=== PATIENT | female | born 1930 | race Caucasian/White ===

== ENCOUNTER 2017-02-03 10:08 | Inpatient (IN) ==
[2017-02-03] MEDS ORDERED: MORPHINE IV ONE (10:28)
[2017-02-03] MEDS ORDERED: MORPHINE ONE (10:49)
[2017-02-03 10:50] LABS: MANUAL DIFF NEEDED? NO
[2017-02-03 10:56] LABS: BASO% 0.2 % (0.0-0.8); EOS# 0.14 X1000 (0.0-0.7); EOS% 2.3 % (0.0-10.0); HEMATOCRIT 34.3 % (37.0-47.0); HEMOGLOBIN 10.8 g/dL (12.0-16.0); LYMPH# 1.79 X1000 (1.2-3.4); LYMPH% 29.9 % (20.5-51.1); MCH 29.3 PG (27-31); MCHC 31.5 g/dL (33-37); MCV 93.2 FL (81-99); MONO# 0.39 X1000 (0.11-0.59); MONO% 6.5 % (1.7-9.3); MPV 10.2 FL (7.4-10.4); NEUT% 61.1 % (42.2-75.2); PLT 293 X1000 (130-400); RBC 3.68 XMIL (4.2-5.4)
[2017-02-03 11:13] LABS: ALBUMIN 3.4 g/dL (3.5-5.0); CALCIUM 9.5 mg/dL (8.8-10.2); POTASSIUM 4.3 mmol/L (3.5-5.1); TOTAL BILIRUBIN 0.2 mg/dL (0.20-1.00); TOTAL PROTEIN 7.7 g/dL (6.3-8.3)
--- NOTE | 2017-02-03 11:48 | Diag Imaging Result Doc PS360 ---
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 There is patchy lucency in the periventricular white matter of both hemispheres. There is no evidence of bleed, mass effect, or abnormal extra-axial fluid collection. Compared to 06/04/2016, the appearance of the brain has not changed significantly. Cervical spine: There is no evidence of fracture or subluxation. There is degenerative disc changes at the C5-6 level which has not changed significantly since 06/04/2016. There is also facet arthropathy particularly at the C4-5 level bilaterally. IMPRESSION: Chronic changes. No evidence of acute disease. Electronically signed by Rod Mcmillan 02/03/2017 11:46 AM
--- NOTE | 2017-02-03 11:54 | Diag Imaging Result Doc PS360 ---
EXAM: ELBOW COMPLETE RIGHT HISTORY: fall, bruise right elbow TECHNIQUE: Right elbow three views COMMENT: There is no evidence of fracture or dislocation. No other definite bony abnormalities are present. IMPRESSION: No acute bony disease. Electronically signed by Rod Mcmillan 02/03/2017 11:52 AM
--- NOTE | 2017-02-03 11:55 | Diag Imaging Result Doc PS360 ---
CHEST-1 VIEW - 02/03/2017 INDICATION: HIP FX TECHNIQUE: COMPARISON: 03/03/2014 FINDINGS: Lung volumes are low. The lungs are clear. Heart size is normal. No pneumothorax or pleural effusion. IMPRESSION: Negative exam. Electronically signed by Mitul Palomares 02/03/2017 11:52 AM
--- NOTE | 2017-02-03 11:57 | Diag Imaging Result Doc PS360 ---
EXAM: XRAY PELVIS W/HIP 2-3VW RT HISTORY: fall, right hip pain, unable to move leg TECHNIQUE: AP pelvis and right hip four views COMMENT: There is an intertrochanteric fracture of the right femur. There is some generalized osteopenia. 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 There is stool in the rectum. Postsurgical changes are present at L4-5 and there is degenerative disc disease at L3-4. IMPRESSION: Fracture right proximal femur. Electronically signed by Rod Mcmillan 02/03/2017 11:55 AM
[2017-02-03] MEDS ORDERED: ZOFRAN IV ONE (12:15)
[2017-02-03] MEDS ORDERED: NS 1,000 ML IV ONE (12:26)
[2017-02-03 13:00] LABS: URINE CULTURE NEEDED? NO; URINE MICRO REVIEW NEEDED? NO; URINE SOURCE CLEAN CATCH
[2017-02-03 13:03] LABS: BILIRUBIN URINE NEGATIVE (NEGATIVE); BLOOD URINE NEGATIVE (NEGATIVE); COLOR STRAW; GLUCOSE URINE 150 mg/dL (NEGATIVE); LEUKOCYTES URINE NEGATIVE (NEGATIVE); NITRITE URINE NEGATIVE (NEGATIVE); PH URINE 5.5; PROTEIN URINE 50 mg/dL (NEGATIVE); SP GRAVITY URINE 1.005; TURBIDITY URINE CLEAR (CLEAR); UR EPITHELIAL CELLS <10 /HPF (<10); URINE BACTERIA NEGATIVE /HPF; URINE RBC <10 /HPF (<10); URINE WBC <10 /HPF (<10); UROBILINOGEN URINE NORMAL (NORMAL)
[2017-02-03] MEDS ORDERED: MORPHINE IV PRN (15:19)
[2017-02-03 15:45] LABS: IRON SATURATION 19 %; TIBC 300 ug/dL; TOTAL IRON 56 ug/dL (49-151); UNBOUND IRON 244 ug/dL (112-346)
[2017-02-03] MEDS ORDERED: NORCO-7.5 PO PRN (16:05)
[2017-02-03] MEDS ORDERED: ZOFRAN IV PRN (16:05)
[2017-02-03] MEDS ORDERED: TYLENOL PO PRN (16:05)
[2017-02-03 16:06] LABS: FERRITIN 352 ng/mL (13-150)
--- NOTE | 2017-02-03 16:33 | Diag Imaging Result Doc PS360 ---
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 There is generalized osteopenia. There is no evidence of fracture or dislocation. No previous studies are available for comparison. IMPRESSION: Osteopenia. No acute bony abnormality. Electronically signed by Rod Mcmillan 02/03/2017 4:31 PM
[2017-02-03] MEDS: HUMULIN R SUBQ SCH ×2 (17:24→21:50)
[2017-02-03] MEDS: NS 1,000 ML IV SCH ×2 (17:25→21:50)
[2017-02-03] MEDS: XANAX PO SCH (21:49)
[2017-02-03] MEDS: INDERAL PO SCH (21:50)
[2017-02-04] MEDS: NS 1,000 ML IV SCH ×2 (05:17→14:42)
[2017-02-04 05:29] LABS: MANUAL DIFF NEEDED? NO
[2017-02-04 05:35] LABS: BASO% 0.2 % (0.0-0.8); EOS# 0.11 X1000 (0.0-0.7); EOS% 1.8 % (0.0-10.0); HEMATOCRIT 30.8 % (37.0-47.0); HEMOGLOBIN 9.6 g/dL (12.0-16.0); LYMPH# 1.84 X1000 (1.2-3.4); LYMPH% 29.9 % (20.5-51.1); MCH 29.1 PG (27-31); MCHC 31.2 g/dL (33-37); MCV 93.3 FL (81-99); MONO# 0.58 X1000 (0.11-0.59); MONO% 9.4 % (1.7-9.3); MPV 9.7 FL (7.4-10.4); NEUT% 58.7 % (42.2-75.2); PLT 230 X1000 (130-400)
[2017-02-04 05:44] LABS: INR 0.92; PROTIME 9.6 Seconds (9.2-11.7); PTT 26.1 Seconds (22.0-36.0)
[2017-02-04 05:52] LABS: CALCIUM 8.5 mg/dL (8.8-10.2); MAGNESIUM 1.6 mg/dL (1.5-2.7); POTASSIUM 3.9 mmol/L (3.5-5.1); TOTAL BILIRUBIN 0.2 mg/dL (0.20-1.00); TOTAL PROTEIN 6.1 g/dL (6.3-8.3)
[2017-02-04] MEDS: HUMULIN R SUBQ SCH ×4 (06:12→23:39)
[2017-02-04] MEDS: PRILOSEC PO SCH (06:12)
--- NOTE | 2017-02-04 07:08 | EKG Report ---
Test Performed on : 02/04/2017 06:06:13 AM Test Reason : rythm analysis Blood Pressure : / mmHG Vent. Rate : 081 BPM Atrial Rate : 081 BPM P-R Int : 218 ms QRS Dur : 126 ms QT Int : 406 ms P-R-T Axes : 042 -67 014 degrees QTc Int : 471 ms Sinus rhythm. with 1st degree AV block. Right bundle branch block Left anterior fascicular block Bifascicular block Possible Lateral infarct (cited on or before 03-FEB-2017) Abnormal ECG When compared with ECG of 03-FEB-2017 15:53, (Unconfirmed) Questionable change in initial forces of Lateral leads Confirmed by Robert MACDONALD, Mateo Alva ([id number]) on 02/05/2017 6:40:22 AM
[2017-02-04] MEDS ORDERED: INSULIN PEN NEEDLES ONE (07:30)
[2017-02-04] MEDS ORDERED: QUELICIN (DOSE) ONE (10:46)
[2017-02-04] MEDS ORDERED: XYLOCAINE-MPF 2% ONE (10:48)
[2017-02-04] MEDS ORDERED: DIPRIVAN 1% ONE (11:51)
[2017-02-04] MEDS ORDERED: KEFZOL 1 GM/D5W 1 GM/50 ML IVPB ONE (11:56)
[2017-02-04] MEDS ORDERED: FENTANYL ONE (12:23)
[2017-02-04] MEDS ORDERED: OFIRMEV 1000 MG/ISOTONIC SOLN 1,000 MG/100 ML BOTTLE ONE (12:54)
[2017-02-04] MEDS ORDERED: ZOFRAN ONE (12:54)
[2017-02-04] MEDS ORDERED: ZOFRAN IV PRN (14:32)
[2017-02-04] MEDS ORDERED: MILK OF MAGNESIA PO PRN (14:32)
[2017-02-04] MEDS ORDERED: HALDOL IV PRN (14:32)
[2017-02-04 15:23] LABS: URINE MICRO REVIEW NEEDED? NO; URINE SOURCE CATH
[2017-02-04 15:32] LABS: BILIRUBIN URINE NEGATIVE (NEGATIVE); BLOOD URINE MODERATE (NEGATIVE); COLOR YELLOW; GLUCOSE URINE 200 mg/dL (NEGATIVE); LEUKOCYTES URINE LARGE (NEGATIVE); NITRITE URINE NEGATIVE (NEGATIVE); PH URINE 6.5; PROTEIN URINE 70 mg/dL (NEGATIVE); TURBIDITY URINE HAZY (CLEAR); UROBILINOGEN URINE NORMAL (NORMAL)
[2017-02-04 15:34] LABS: UR EPITHELIAL CELLS <10 /HPF (<10); URINE BACTERIA NEGATIVE /HPF; URINE CULTURE NEEDED? YES; URINE RBC <10 /HPF (<10); URINE WBC TNTC /HPF (<10)
[2017-02-04] MEDS: INDERAL PO SCH ×2 (16:54→20:22)
[2017-02-04] MEDS: LEVEMIR SUBQ SCH (16:55)
[2017-02-04] MEDS: VITAMIN D PO SCH (16:56)
[2017-02-04] MEDS: NORVASC PO SCH (16:56)
[2017-02-04] MEDS: TYLENOL PO SCH ×2 (17:47→23:42)
[2017-02-04] MEDS: OXY IR PO PRN (19:09)
[2017-02-04] MEDS: XANAX PO SCH (20:22)
[2017-02-04] MEDS: COLACE PO SCH (20:22)
[2017-02-04] MEDS: KEFZOL 1 GM/D5W 1 GM/50 ML IVPB IV SCH (20:23)
[2017-02-05] MEDS: OXY IR PO PRN ×2 (02:49→09:33)
[2017-02-05] MEDS: NS 1,000 ML IV SCH ×2 (02:50→17:27)
[2017-02-05] MEDS: KEFZOL 1 GM/D5W 1 GM/50 ML IVPB IV SCH ×2 (04:30→12:21)
[2017-02-05 06:09] LABS: HEMATOCRIT 26.9 % (37.0-47.0); HEMOGLOBIN 8.3 g/dL (12.0-16.0)
[2017-02-05 06:38] LABS: CALCIUM 8.1 mg/dL (8.8-10.2); POTASSIUM 3.9 mmol/L (3.5-5.1)
[2017-02-05] MEDS: TYLENOL PO SCH ×3 (06:41→22:36)
[2017-02-05] MEDS: PRILOSEC PO SCH (06:41)
[2017-02-05] MEDS ORDERED: INSULIN PEN NEEDLES ONE (08:37)
[2017-02-05] MEDS: NORVASC PO SCH (09:25)
[2017-02-05] MEDS: LOVENOX SUBQ SCH (09:25)
[2017-02-05] MEDS: VITAMIN D PO SCH (09:25)
[2017-02-05] MEDS: MIRALAX PO SCH (09:25)
[2017-02-05] MEDS: FERROUS SULFATE PO SCH (09:25)
[2017-02-05] MEDS: INDERAL PO SCH ×2 (09:26→22:36)
[2017-02-05] MEDS: LEVEMIR SUBQ SCH (09:26)
[2017-02-05] MEDS: HUMULIN R SUBQ SCH ×4 (12:21→22:39)
[2017-02-05] MEDS: COLACE PO SCH (22:36)
[2017-02-05] MEDS: XANAX PO SCH (22:37)
[2017-02-06] MEDS: OXY IR PO PRN ×2 (02:32→14:33)
[2017-02-06 05:36] LABS: HEMATOCRIT 24.3 % (37.0-47.0); HEMOGLOBIN 7.6 g/dL (12.0-16.0)
[2017-02-06] MEDS: NS 1,000 ML IV SCH ×3 (06:49→17:55)
[2017-02-06] MEDS: PRILOSEC PO SCH (06:57)
[2017-02-06] MEDS: TYLENOL PO SCH ×3 (06:57→21:17)
[2017-02-06] MEDS: HUMULIN R SUBQ SCH ×4 (06:57→21:17)
[2017-02-06] MEDS: INDERAL PO SCH ×2 (11:50→21:17)
[2017-02-06] MEDS: FERROUS SULFATE PO SCH (11:50)
[2017-02-06] MEDS: LOVENOX SUBQ SCH (11:51)
[2017-02-06] MEDS: LEVEMIR SUBQ SCH (11:51)
[2017-02-06] MEDS: NORVASC PO SCH (11:51)
[2017-02-06] MEDS: MIRALAX PO SCH (11:52)
[2017-02-06] MEDS: VITAMIN D PO SCH (11:55)
[2017-02-06] MEDS: MORPHINE IV PRN (18:51)
[2017-02-06] MEDS: COLACE PO SCH (21:17)
[2017-02-06] MEDS: XANAX PO SCH (21:17)
[2017-02-07] MEDS: TYLENOL PO SCH ×5 (05:33→20:54)
[2017-02-07] MEDS: PRILOSEC PO SCH ×2 (05:57→06:26)
[2017-02-07] MEDS: HUMULIN R SUBQ SCH ×4 (06:00→20:53)
[2017-02-07 06:08] LABS: HEMATOCRIT 23.2 % (37.0-47.0); HEMOGLOBIN 7.2 g/dL (12.0-16.0)
[2017-02-07 06:27] LABS: CALCIUM 8.2 mg/dL (8.8-10.2); POTASSIUM 4.3 mmol/L (3.5-5.1)
[2017-02-07] MEDS ORDERED: CALMOSEPTINE OINTMENT TOP PRN (10:27)
[2017-02-07] MEDS: PERIDEX MT SCH ×2 (10:44→20:53)
[2017-02-07] MEDS: VITAMIN D PO SCH (10:44)
[2017-02-07] MEDS: INDERAL PO SCH ×2 (10:44→20:53)
[2017-02-07] MEDS: LOVENOX SUBQ SCH (10:44)
[2017-02-07] MEDS: FERROUS SULFATE PO SCH (10:45)
[2017-02-07] MEDS: NORVASC PO SCH (10:45)
[2017-02-07] MEDS: LEVEMIR SUBQ SCH (10:45)
[2017-02-07] MEDS: MIRALAX PO SCH (10:45)
[2017-02-07] MEDS: NS 1,000 ML IV SCH (16:28)
[2017-02-07] MEDS: MORPHINE IV PRN (18:06)
[2017-02-07] MEDS: COLACE PO SCH (20:53)
[2017-02-07] MEDS: XANAX PO SCH (20:54)
[2017-02-08] MEDS: TYLENOL PO SCH ×2 (03:18→06:21)
[2017-02-08 05:45] LABS: MANUAL DIFF NEEDED? NO
[2017-02-08] MEDS: PRILOSEC PO SCH ×2 (05:50→06:21)
[2017-02-08 05:54] LABS: BASO% 0.2 % (0.0-0.8); EOS# 0.13 X1000 (0.0-0.7); HEMATOCRIT 27.4 % (37.0-47.0); HEMOGLOBIN 8.7 g/dL (12.0-16.0); IMM GRAN# 0.02 X1000 (0.0-0.04); IMM GRAN% 0.3 % (0.0-0.5); LYMPH# 1.84 X1000 (1.2-3.4); LYMPH% 27.8 % (20.5-51.1); MCH 29.3 PG (27-31); MCHC 31.8 g/dL (33-37); MCV 92.3 FL (81-99); MONO# 0.42 X1000 (0.11-0.59); MONO% 6.3 % (1.7-9.3); MPV 10.3 FL (7.4-10.4); NEUT% 63.4 % (42.2-75.2); PLT 208 X1000 (130-400); RBC 2.97 XMIL (4.2-5.4)
[2017-02-08] MEDS: HUMULIN R SUBQ SCH ×2 (06:20→11:25)
[2017-02-08 06:27] LABS: POTASSIUM 4.3 mmol/L (3.5-5.1)
[2017-02-08] MEDS: INDERAL PO SCH (08:44)
[2017-02-08] MEDS: NORVASC PO SCH (08:45)
[2017-02-08] MEDS: LOVENOX SUBQ SCH (08:45)
[2017-02-08] MEDS: VITAMIN D PO SCH (08:45)
[2017-02-08] MEDS: FERROUS SULFATE PO SCH (08:45)
[2017-02-08] MEDS: PERIDEX MT SCH (08:54)
[2017-02-08] MEDS: MIRALAX PO SCH (08:54)
[2017-02-08] MEDS ORDERED: LEVEMIR SUBQ SCH (09:00)
[2017-02-08] MEDS: OXY IR PO PRN ×2 (11:26→15:21)
[2017-02-08 11:36] VITALS: BP 152/59
== END 2017-02-08 15:34 ==
LOC: ED 10:08 → 4N 15:54
PROVIDERS: ATTEND Internal Medicine